=== PATIENT | female | born 1950 | race Caucasian/White ===

== ENCOUNTER 2017-12-08 21:36 | Emergency (ER) | END 2017-12-09 04:51 | disposition short-term general hospital (02) ==

== ENCOUNTER 2018-12-19 02:00 | Emergency (ER) | payer OTHER, MEDICAID ==
[~2018-12-19] VITALS: Ht 157.5 cm; Wt 113.6 kg
[2018-12-19 02:00] VITALS: Ht 157.5 cm; Wt 113.6 kg
[~2018-12-19 02:00] MED LIST: ALPR1TAB2 PO; ARIP20TA5 PO; CYCL5TAB PO; ESCI20TA PO; FURO40TA4 PO; INSU100I12 SQ; LANT3I SC; METO-448 PO; SPIR50TA PO; ZOLP10TA PO
[2018-12-19] MEDS ORDERED: OXYCODONE/ACETAMINOPHEN (5/325) TAB PO ONE (02:30)
[2018-12-19 03:57] VITALS: BP 149/64; PULSE 83; RESP 20
--- NOTE | 2018-12-19 03:59 | ERD ---
ER Documentation Chief Complaint Chief Complaint BIBA from home s/p fall with back pain HPI 68-year-old female with a history of chronic back pain presenting with acute back pain after she lost her balance at home and fell against the wall. She states that she was walking with her walker to the restroom when her walker rolled in front of her and she fell against a wall hitting her left arm. She denies falling on her back but complains of acute back pain after that incident. No numbness or tingling in her extremities. Her pain is in her lower back, aching, 9 out of 10, nonradiating. She usually takes Percocet for her chronic pain. Last dose was in the morning at 8:30 AM. She also complains of left arm aching pain but is able to move it with no numbness or tingling. She denies any dizziness, chest pain, shortness of breath. ROS All systems reviewed and are negative except as per history of present illness. Medications Home Meds Reported Medications Aripiprazole* (Abilify*) 20 Mg Tablet, 20 MG PO DAILY, #30 TAB 12/08/17 Escitalopram Oxalate* (Lexapro*) 20 Mg Tablet, 40 MG PO DAILY, #30 TAB 12/08/17 Metoprolol Tartrate* (Lopressor*) 25 Mg Tab, 25 MG PO BID, #60 TAB 12/08/17 Alprazolam* (Xanax*) 1 Mg Tab, 1 MG PO BID PRN for ANXIETY, TAB 12/08/17 Zolpidem Tartrate* (Ambien*) 10 Mg Tablet, 10 MG PO QHS PRN for INSOMNIA, TAB 12/08/17 Cyclobenzaprine Hcl* (Cyclobenzaprine Hcl*) 5 Mg Tablet, 5 MG PO TID, #90 TAB 12/08/17 Furosemide* (Furosemide*) 40 Mg Tablet, 40 MG PO DAILY, TAB 12/08/17 Spironolactone* (Aldactone*) 50 Mg Tablet, 50 MG PO BID, #60 TAB 12/08/17 Insulin Lispro (Humalog Kwikpen U-100) 100 Unit/1 Ml Insuln.pen, 30 UNIT SQ TID, EA 12/08/17 Insulin Glargine* (Lantus*) 100 Unit/Ml Soln, 40 UNIT SC BID, #1 VIAL 12/08/17 Allergies Allergies: Coded Allergies: No Known Allergy (Unverified , 12/08/17) PMhx/Soc History of Surgery: Yes (BILAT KNEE, HIP REPLACE, HYSTERECTOMY, BLADDER) Anesthesia Reaction: No Hx Neurological Disorder: No Hx Respiratory Disorders: No Hx Cardiac Disorders: Yes (HTN) Hx Psychiatric Problems: No Hx Miscellaneous Medical Probl: Yes (DIABETES, CHRONIC PAIN, HEP C) Hx Alcohol Use: No Hx Substance Use: No Hx Tobacco Use: No Smoking Status: Unknown if ever smoked Physical Exam Vitals Vital Signs Date Temp Pulse Resp B/P (MAP) Pulse Ox O2 O2 Flow FiO2 Time Delivery Rate 12/19/18 98.2 83 20 149/64 93 Room Air 03:57 (92) 12/19/18 98.7 81 15 135/60 95 02:00 (85) Physical Exam Const: No acute distress, obese Head: Atraumatic Eyes: Normal Conjunctiva ENT: Normal External Ears, Nose and Mouth. Neck: Full range of motion. No meningismus. Resp: Clear to auscultation bilaterally Cardio: Regular rate and rhythm, no murmurs Abd: Soft, non tender, non distended. Normal bowel sounds Skin: No petechiae or rashes Back: No midline or flank tenderness. Diffuse lower back tenderness muscular to palpation Ext: Left forearm with bruising and swelling, skin abrasion noted. No deformities. Joints not swollen, full range of motion at all joints. All other extremities atraumatic. Neur: Awake and alert Psych: Normal Mood and Affect Results 24 hrs Current Medications Medications Dose Sig/Rochelle Start Time Status Last (Trade) Ordered Route PRN Stop Time Admin Dose Reason Admin Oxycodone/ 1 tab ONCE ONCE 12/19/18 DC 12/19/18 Acetaminophen PO 02:30 02:43 (Percocet 12/19/18 02:31 (5/ 325)) Procedures/MDM EMERGENT LABS AND DIAGNOSTIC STUDIES: Radiology Results as interpreted by Radiology below were reviewed by Belia Wells MD: XR left forearm: no acute fracture or dislocation Initial Nursing notes reviewed. Previous Medical Records requested via the Electronic Health Record. EMERGENCY DEPARTMENT COURSE / MEDICAL DECISION MAKING: Patient presents with acute on chronic back pain as well as left forearm pain. Vitals are stable. I do not suspect serious spinal injury. She is neurovascularly intact. She likely has a lower back strain. X-ray of the forearm was then did not show any evidence of acute fracture. Patient was given her home dose of Percocet with good relief of her symptoms. She was able to ambulate with her walker here in the ED. Patient is stable fe for discharge home with continued outpatient follow-up. Patient's blood pressure was elevated (>120/80) but appears stable without evidence of hypertensive emergency or urgency. The patient was counseled about the risks of hypertension and urged to pursue outpatient monitoring and therapy within a week with their primary care physician. Departure Diagnosis: Primary Impression: Fall with no significant injury Encounter type: initial encounter Qualified Codes: W19.XXXA - Unspecified fall, initial encounter Additional Impressions: Acute exacerbation of chronic low back pain Contusion of arm, left Encounter type: initial encounter Qualified Codes: S40.022A - Contusion of left upper arm, initial encounter Condition: Stable Patient Instructions: Back Pain (Acute Or Chronic), Contusion, Upper Extremity, Fall Prevention ISSA WELLS MD Dec 19, 2018 03:59
== END 2018-12-19 04:33 | disposition home or self-care (01) ==
LOC: E/R 02:00
DX: S40.022A Contusion of left upper arm, initial encounter (principal); S39.92XA Unspecified injury of lower back, initial encounter; E11.9 Type 2 diabetes mellitus without complications; I10 Essential (primary) hypertension; W01.198A Fall on same level from slipping, tripping and stumbling with subsequent striking against other object, initial encounter; Y92.9 Unspecified place or not applicable; Z79.4 Long term (current) use of insulin; Z96.643 Presence of artificial hip joint, bilateral; Z96.653 Presence of artificial knee joint, bilateral
CPT/HCPCS: 73090; 99283